=== PATIENT | male | born 1940 | race Caucasian/White ===

== ENCOUNTER → 2024-05-07 | Outpatient (CLI) | payer MEDICARE, BC, SELFPAY ==
[2024-05-12 13:50] LABS: PSA, Free 1.34 ng/mL
[2024-05-13 07:03] LABS: PSA, % Free 22 % (calc) (>25)
== END | disposition home or self-care (01) ==
PROVIDERS: PCP Nurse Practitioner Family; Referring Provider Physician Assistant; Visit Provider Physician Assistant
DX: N40.1 Benign prostatic hyperplasia with lower urinary tract symptoms (principal)
CPT/HCPCS: 36415; 84153; 84154

== ENCOUNTER → 2024-05-07 | Outpatient (BNVA) | payer MEDICARE, BC, SELFPAY | END | disposition home or self-care (01) | PROVIDERS: Visit Provider Physician Assistant | DX: N40.1 Benign prostatic hyperplasia with lower urinary tract symptoms (principal); R97.20 Elevated prostate specific antigen [PSA]; Z96.0 Presence of urogenital implants; E11.9 Type 2 diabetes mellitus without complications; I11.9 Hypertensive heart disease without heart failure; Z80.42 Family history of malignant neoplasm of prostate | CPT/HCPCS: 99212; 99213; Q3014; G0463 ==

== ENCOUNTER → 2024-07-23 | Outpatient (BNVA) | payer MEDICARE, BC, SELFPAY | END | disposition home or self-care (01) | PROVIDERS: Visit Provider Urology | DX: N40.1 Benign prostatic hyperplasia with lower urinary tract symptoms (principal); N13.8 Other obstructive and reflux uropathy; R35.0 Frequency of micturition | CPT/HCPCS: 81003; 99212; G0463 ==

== ENCOUNTER 2024-08-27 20:15 | Emergency (ER) | payer MEDICARE, BC, SELFPAY ==
--- NOTE | 2024-08-27 20:19 | PD.EDSYNC ---
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 Patient recalls going to the restroom, urinating, feeling dizzy, then waking up on the floor. After EMS arrived and got him up, patient complained of severe chest pain. Patient was given O2, Aspirin 162 mg, 0.4 g Nitro paste and Nitro SL with no improvement. Patient is on Plavix for a blood clot 3 years ago, but denies stent placement. He was seen by Dr. Wheeler last week and is scheduled for a procedure on his right leg. Patient is unsure of what the procedure is for as he denies any pain or discoloration to the RLE. Patient denies other known cardiac issues or any other associated symptoms or aggravating factors. No modifying factors, no radiation, no migration. Severe chest reported overall. No other concerns or complaints expressed at this time. Related Data Home Medications ?Medication ?Instructions ?Recorded ?Confirmed cholecalciferol (vitamin D3) 50 2,000 unit PO QDAY #0 caps 02/24/17 07/23/24 mcg (2,000 unit) capsule (Vitamin D3) vit C 150 mg-vit E 30 unit-lutein 1 cap PO QAM 04/27/17 07/23/24 5 gm-ichvallr-cnfav 3 150 mg capsule (Ocuvite) losartan 25 mg tablet 25 mg PO QDAY 02/11/19 07/23/24 atorvastatin 40 mg tablet 40 mg PO QHS 07/23/24 07/23/24 clopidogrel 75 mg tablet 75 mg PO QDAY 07/23/24 07/23/24 finasteride 5 mg tablet 5 mg PO QDAY 07/23/24 07/23/24 sertraline 50 mg tablet (Zoloft) 50 mg PO QDAY 07/23/24 07/23/24 tamsulosin 0.4 mg capsule (Flomax) 0.8 mg PO HS 07/23/24 07/23/24 trazodone 50 mg tablet 50 mg PO QHS PRN 07/23/24 07/23/24 Allergies Allergy/AdvReac Type Severity Reaction Status Date / Time No Known Allergies Allergy Verified 08/27/24 20:41 Review of Systems Review of Systems Systems Reviewed: All systems reviewed, normal except as documented Past Medical History Past Medical History CARDIAC: Positive Cardiac Disorders GENITOURINARY: Positive Genitourinary Disorders and Benign Prostatic Hyperplasia Family History FAMILY HISTORY: Positive Family Cancer Surgical History SURGICAL: Positive Abdominal Surgery ED Exam Narrative Physical exam: GENERAL APPEARANCE: alert and oriented x 4, well-developed, well-nourished, no acute distress VITALS: All vitals were reviewed and the pulse ox is 98% on room air, which is normal according to my interpretation. HEENT: Normocephalic, 3 lacerations to the head 1 cm (x1), < 1 cm (x2) to left parietal area; pupils equal, round, reactive to light; EOMI; mucous membranes pink, moist; oropharynx clear NECK: Supple LUNGS: CTABL; no wheezes, no rales, no rhonchi HEART: Regular rate, regular rhythm; normal S1, S2; no murmurs. CHEST: Nitro paste patch placed. ABDOMEN: non distended; normal BS; soft, mild suprapubic tenderness, no guarding, no rebound; no masses, no organomegaly, no hernia BACK: no CVA tenderness EXTREMITIES: skin tear to the left elbow; no edema, no tenderness NEUROLOGIC: awake; alert and oriented x4; cranial nerves II-XII grossly intact; no focal sensory or motor deficits PSYCHIATRIC: appropriate mood and affect SKIN: warm, dry, normal color; no rashes Course Course Course Narrative: CXR is ordered for determining the etiology of shortness of breath. Quality Measures none Orders Category Date Time Status CT Screening NOW Care 08/27/24 20:21 Active Formal Waiter/Waitress NOW Care 08/27/24 20:20 Active EKG (ED ONLY) *Do not use* NOW Care 08/27/24 20:20 Completed EKG (ED ONLY) *Do not use* NOW Care 08/27/24 20:31 Completed Insert IV NOW Care 08/27/24 20:[address] angio carotid w head w Stat Exams 08/27/24 20:[address] cervical spine wo con Stat Exams 08/27/24 20:[address] head/brain wo con Stat Exams 08/27/24 20:21 Completed EKG (ED Only) Stat Exams 08/27/24 20:20 Ordered EKG (ED Only) Stat Exams 08/27/24 20:30 Ordered XR chest 1V portable Stat Exams 08/27/24 20:20 Completed B-Type Natriuretic Peptide Stat Lab 08/27/24 20:30 Completed CBC Stat Lab 08/27/24 20:30 Completed Comprehensive Metabolic Panel Stat Lab 08/27/24 20:30 Completed Lipase Stat Lab 08/27/24 20:30 Completed Magnesium Stat Lab 08/27/24 20:30 Completed Partial Thromboplastin Time Stat Lab 08/27/24 20:30 Completed Prothrombin Time with INR Stat Lab 08/27/24 20:30 Completed Troponin I Stat Lab 08/27/24 20:30 Completed Troponin I Stat Lab 08/28/24 02:05 Completed Morphine Inj Med 08/27/24 20:33 Discontinued 5 mg IVP X1 ONE Ondansetron Inj [Zofran Inj] Med 08/27/24 20:33 Discontinued 4 mg IVP X1 ONE Vital Signs Vital signs: Vital Signs Temperature 97.6 F 08/27/24 20:27 Pulse Rate 77 08/27/24 20:27 Respiratory Rate 16 08/27/24 20:27 Blood Pressure 148/88 H 08/27/24 20:27 Pulse Oximetry (%) 96 08/27/24 20:27 Oxygen Delivery Method Room Air 08/27/24 20:27 PROCEDURES: EKG Interpretation #2: Date of EK08/27/24 Interpretation: Interpreted by me EKG Impression: PVCs and Bundle branch block Additional EKG comment: EKG manual reading, my interpretation: sinus rhythm, rate: xx bpm, mild to moderate artifact, occasional PVC's, left BBB, no acute ischemic changes. Laceration Laceration 1: Site: scalp Side (If applicable): left Size (cm): 1 Description: linear Depth: simple, single layer Amount of anesthesia used (mL): 0 Pre-repair: wound explored, irrigated extensively, extensive debridement and wound margins revised Skin layer closed with: other ([place] (x6)) Syncope MDM Narrative MDM Narrative:: Scribe Attestation: I, Niru Malone, am scribing for and in the presence of Dr. Duggan. Provider Notation: Although this document has been carefully reviewed, there may still be some phonetic and other typographical errors.? These errors are purely grammatical due to imperfections in the software program and should not be construed in any way to? compromise the substance of the patient's medical care during this visit. Patient data External records reviewed:: [facility] previous records (Reviewed prior ED records from 07/15/23. Patient was seen for Accidental overdose.) and EMS form Clinical information provided by:: patient and EMS Social determinants that could affect healthcare access:: none Patient has the following chronic illnesses:: Benign prostatic hyperplasia How is presenting disease/condition affected by chronic disease/condition?: exacerbated by Evaluation data The following diagnostics were reviewed and interpreted by me:: lab results, radiology exam(s) and EKG tracing(s) (EKG manual reading, my interpretation: rate: xx bpm, IVCD, left axis deviation, left BBB.) Lab and/or radiology exams considered but not ordered:: None Interpretation Summary: RADIOLOGY Chest X-Ray: Patient: NEENA DUMONT Med. Record#: [id number] Birthdate: 1940 Age/Sex: 84 / M Location: [facility] Attending Dr: Ordering Physician: Estrella Duggan MD Date of Service: 08/27/24 Procedure(s): XR chest 1V portable Accession Number(s): [id number] cc: Antonia Mejia [employer]; Randy Murphy MD; Estrella Duggan MD~ Examination: PA chest single view TECHNIQUE: Upright PA chest single view Date and time: August 27, 2024 2037 hours INDICATIONS: Chest pain and shortness of breath today. FINDINGS: Early pneumonia left base. Mild prominence left ventricle Mild vascular congestion Prominent osteopenia IMPRESSION: Early pneumonia left base Dictated By: Randy Murphy MD Signed By: <Electronically signed by Randy Murphy MD in OV> 08/27/24 2104 CTA Carotid with Head: Patient: NEENA DUMONT [facility]. Record#: [id number] Birthdate: 1940 Age/Sex: 84 / M Location: [facility] Attending Dr: Ordering Physician: Estrella Duggan MD Date of Service: 08/27/24 Procedure(s): CT angio carotid w head w Accession Number(s): [id number] cc: Antonia Mejia NP; Randy Murphy MD; Estrella Duggan MD~ Examination: CTA carotids with intravenous contrast CTA brain, head with intravenous contrast. 2-D sagittal, coronal reconstructions. 3-D reconstructions. Exam date and time: August 27, 2024 2141 hours INDICATIONS: Syncopal episodes today history carotid stent CTDI: vol (mGy) , 11.6 DLP: (mGycm) 469 Technique: Multiple CTA axial brain, head carotid images post intravenous contrast injection 75 cc, Isovue-370. 2-D sagittal, coronal reconstructions. 3-D reconstructions, 3-D post processing including vascular maximum intensity projection images. Low dose protocols were performed. One or more of the following dose reduction techniques were used; automated exposure control, adjustment of the mA and/or KV according to patient size, use of iterative reconstruction technique. Findings: Right carotid stent with 70-80% stenosis, sagittal images 90 10-30% stenosis origin left internal carotid artery Codominant vertebral arteries with no critical stenoses No cerebral or basilar arterial conclusions IMPRESSION: Right carotid stent with 70-80% stenosis at the level of the internal carotid artery Dictated By: Randy Murphy MD Signed By: <Electronically signed by Randy Murphy MD in OV> 08/27/242222 Head/Brain CT: Patient: NEENA DUMONT [facility]. Record#: [id number] Birthdate: 1940 Age/Sex: 84 / M Location: [facility] Attending Dr: Ordering Physician: Estrella Duggan MD Date of Service: 08/27/24 Procedure(s): CT head/brain wo con Accession Number(s): [id number] cc: Antonia Mejia NP; Randy Murphy MD; Estrella Duggan MD~ Examination: CT brain head without contrast. 2-D sagittal coronal reconstructions Date and time of exam:August 27, 20242134 hours Comparison June 08, 2014 INDICATIONS: Patient fell today with injury to the head, followed by head pain altered mental status CTDI: vol (mGy):51.6 DLP: (mGycm):1039 Technique: Multiple CT axial sections of the brain have been obtained, 5 mm slice thickness. Contrast has not been administered. 2-D sagittal, coronal reconstructions have been obtained Low dose protocols were performed. One or more of the following dose reduction techniques were used; automated exposure control, adjustment of the mA and/or KV according to patient size, use of iterative reconstruction technique. Findings: No significant ventricular enlargement. Intra-axial or extra-axial hemorrhage density is not seen. No mass effect or midline shift Basal cisterns are not remarkable. Fourth ventricle is midline. Cranial vault intact. Left parietal soft tissue scalp swelling Impression: Negative for acute hemorrhage, mass effect or midline shift Dictated By: Randy Murphy MD Signed By: <Electronically signed by Randy Murphy MD in OV> 08/27/24 2219 C-Spine CT: Patient: NEENA DUMONT. Record#: [id number] Birthdate: 1940 Age/Sex: 84 / M Location: [facility] Attending Dr: Ordering Physician: Estrella Duggan MD Date of Service: 08/27/24 Procedure(s): CT cervical spine wo con Accession Number(s): [id number] cc: Antonia Mejia NP; Randy Murphy MD; Estrella Duggan MD~ Examination: CT cervical spine without contrast 2-D sagittal reconstructions 2-D coronal reconstructions 3-D reconstructions. Exam date and time:August 27, 2024 2135 hours INDICATIONS: Patient fell today with injury to the neck, neck pain CTDI:vol (mGy) 9.47 DLP: (mGycm) 181 Technique: Multiple 2 mm axial sections of the cervical spine have been obtained. The coronal and sagittal reconstructions have been obtained. 3-D reconstructions have been obtained. Low dose protocols were performed. One or more of the following dose reduction techniques were used; automated exposure control, adjustment of the mA and/or KV according to patient size, use of iterative reconstruction technique. Findings: Axial sections demonstrate intact base of the skull. Cystic change in the odontoid Advanced degenerative disc disease C4-C5, C5-C6, C6-C7, C7-T1 Grade 1 anterolisthesis C7 on T1 3 mm C1 exhibit satisfactory relationship to the odontoid. No acute cervical vertebral body fracture seen. Alignment posterior spinous processes satisfactory. Narrowing of right carotid stent approximately 50% Impression: No acute cervical fracture. 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, not seen on the CT neck study June 06, 2017, recommend elective MRI cervical spine follow-up, pre and postcontrast to exclude osseous metastatic disease Narrowing of right carotid stent approximately 50%, recommend follow-up carotid Doppler sonography Dictated By: Randy Murphy MD Signed By: <Electronically signed by Randy Murphy MD in OV> 08/27/24 2217 Medications / Prescriptions Medications or Prescriptions considered but not ordered:: None Medication administrations:: Medication Administration History Discontinued Medications Morphine Sulfate (Morphine Sulf Inj 10 Mg/Ml Vial) 5 mg IVP X1 ONE Stop: 08/27/24 20:34 Last Admin: 08/27/24 20:43 Dose: 5 mg Documented By: CVL Comments: VIAL WAS DISCARD BEFORE SCANNING Ondansetron HCl (Ondansetron Inj 2 Mg/Ml Inj 2 Ml) 4 mg IVP X1 ONE Stop: 08/27/24 20:34 Last Admin: 08/27/24 20:43 Dose: 4 mg Documented By: CVL See above if any Consultations Consultation(s) initiated? (list below): No Diagnosis Syncope Differential Diagnosis: syncope due to orthostatic hypotension, vasovagal syncope, complete atrioventricular block, subarachnoid hemorrhage, pulmonary embolism and dehydration Most likely diagnosis given after review of the tests above:: Syncope, Chest pain, Right carotid stenosis, Laceration of scalp. Admission Indicated Admission indicated?: not indicated Explain why admission is indicated or not indicated:: Patient does not meet admission criteria. Admission Request Was there a request for admission?: No Disposition Plan Disposition Plan: Discharge Discharge Attestation Discharge Attestation: The patient and all family members were given an opportunity to ask questions and understood the discharge instructions. Discharge instructions specifically effects, indications for sooner follow up or return to the emergency department, and the expected course of current diagnosis. Patient condition: Stable Discharge Plan Plan Patient Disposition: HOME (Self Care) Prescriptions/Referrals Prescriptions/Med Rec: No Action tamsulosin [Flomax] 0.4 mg capsule 0.8 mg PO HS vit C-vit W-cvqelk-ofa-om-3 [Ocuvite] [id number] pb-mtnc-gk-mg capsule 1 cap PO QAM clopidogrel 75 mg tablet 75 mg PO QDAY losartan 25 mg tablet 25 mg PO QDAY sertraline [Zoloft] 50 mg tablet 50 mg PO QDAY atorvastatin 40 mg tablet 40 mg PO QHS trazodone 50 mg tablet 50 mg PO QHS PRN finasteride 5 mg tablet 5 mg PO QDAY cholecalciferol (vitamin D3) [Vitamin D3] 2,000 UNIT capsule 2,000 unit PO QDAY Qty: 0 Referrals: Antonia Mejia, [employer] [Primary Care Provider] - In 1 week Problem List Clinical Impression: Syncope, Chest pain, Carotid stenosis, right, Laceration of scalp Patient/Caregiver Discharge Instructions Education Materials: ED Chest Pain, Uncertain Cause, ED Laceration Scalp Sutures or ..., ED Fainting, Uncertain Cause Print Language: Swedish Stand Alone Forms: Kassie Award Info., Patient Portal Info Letter
[2024-08-27 20:20] VITALS: PULSE 74; O2SAT 97; BMI 25.0
--- NOTE | 2024-08-27 20:20 | EKG_ITS ---
[facility] Test Date: 2024-08-27 Pat Name: NEENA DUMONT Department: Room: - Gender: Male [employer] Electrician: : 1940 Requested By: Estrella Baird Order Number: [id number] Reading MD: Estrella Baird Measurements Intervals [place] Rate: 70 P: 30 [place]: 178 QRS: -48 QRSD: 146 T: 75 QT: 425 QTc: 461 Interpretive Statements SINUS RHYTHM LEFT AXIS DEVIATION [QRS AXIS < -30] INTRAVENTRICULAR CONDUCTION DELAY [130+ ms QRS DURATION] Compared to ECG 07/14/2023 13:51:38 Intraventricular conduction delay now present Ventricular premature complex(es) no longer present Left bundle-branch block no longer present /store/S0/[id number]/ecg/[id number].pdf
--- NOTE | 2024-08-27 20:20 | XR_ITS ---
Examination: PA chest single view TECHNIQUE: Upright PA chest single view Date and time: August 27, 20242036 hours INDICATIONS: Chest pain and shortness of breath today. FINDINGS: Early pneumonia left base. Mild prominence left ventricle Mild vascular congestion Prominent osteopenia IMPRESSION: Early pneumonia left base
[2024-08-27 20:27] VITALS: BP 148/88; PULSE 77; RESP 16; TEMP 36.4; O2SAT 96
[2024-08-27 20:30] VITALS: PULSE 72
[2024-08-27 20:32] VITALS: BP 177/98; PULSE 72; RESP 20; O2SAT 98
[2024-08-27] MEDS: ONDANSETRON INJ 2 MG/ML INJ 2 ML 4 MG IVP (20:43)
[2024-08-27] MEDS: MORPHINE SULF INJ 10 MG/ML VIAL 5 MG IVP (20:43)
[2024-08-27 20:50] LABS: Basophils % (Auto) 0 % (0-2.5); Eosinophils # (Auto) 0.1 Thou/mm3 (0.0-0.5); Eosinophils % (Auto) 1 % (0-10); Hematocrit 39.7 % (41.0-53.0); Hemoglobin 14.7 g/dL (13.5-16.0); Immature Granulocytes % (Auto) 1 % (0-0); Immature Granulocytes Auto 0.06 Thou/mm3 (0.00-0.00); Lymphocytes # (Auto) 3.1 Thou/mm3 (1.0-4.8); Lymphocytes % (Auto) 29 % (10-50); Mean Corpuscular Hemoglobin 31.5 pg (25.0-35.0); Mean Corpuscular Volume 85 fL (80-100); Monocytes % (Auto) 9 % (0-12); Neutrophils # (Auto) 6.5 Thou/mm3 (1.8-7.7); Neutrophils % (Auto) 61 % (37-80); Nucleated Red Blood Cell % 0 /100 WBC (0); Platelet Count 218 Thou/mm3 (140-440); RDW Standard Deviation 37.2 fL (35.1-43.9); Red Blood Count 4.66 Miln/mm3 (4.50-5.90); White Blood Count 10.7 Thou/mm3 (3.8-10.6)
[2024-08-27 21:04] LABS: INR 1.1 (0.9-1.3); Partial Thromboplastin Time 25.9 Seconds (22.0-36.0); Prothrombin Time 12.2 Seconds (9.0-12.2)
[2024-08-27 21:11] LABS: B-Type Natriuretic Peptide 58 pg/mL (0-100)
[2024-08-27 21:13] LABS: Alanine Aminotransferase 22 U/L (10-49); Albumin, Serum 4.1 gm/dL (3.4-4.8); Albumin/Globulin Ratio 2.3 (1.2-2.2); Alkaline Phosphatase 67 U/L (46-116); Anion Gap 8 (7-16); Aspartate Amino Transferase 21 U/L (0-34); BUN/Creatinine Ratio 15 Ratio (12-20); Bilirubin,Total 0.8 mg/dL (0.3-1.2); Blood Urea Nitrogen 19 mg/dL (9-23); Calcium 9.6 mg/dL (8.3-10.6); Calcium (Corrected) 9.6 mg/dL (8.5-10.1); Carbon Dioxide 25.1 mMol/L (20.0-31.0); Chloride 99 mMol/L (98-107); Creatinine (Component) 1.3 mg/dL (0.6-1.3); Estimated Creatinine Clearance 41.7 mL/min (>60); Globulin 1.8 gm/dL (2.3-3.5); Glucose 120 mg/dL (74-106); Lipase 74 U/L (12-53); Osmolality,Calculated 267 (275-295); Potassium 3.9 mMol/L (3.4-5.1); Sodium 132 mMol/L (136-145); Total Protein 5.9 gm/dL (5.7-8.2); eGFR 55 See Note
[2024-08-27 21:23] VITALS: BP 143/80; PULSE 74; RESP 18; O2SAT 97
[2024-08-27 23:14] VITALS: BP 135/79; PULSE 79; RESP 19; TEMP 36.6; O2SAT 97
[2024-08-28] VITALS: BP 157/83; PULSE 99; RESP 18; O2SAT 98
[2024-08-28 01:19] VITALS: BP 148/79; PULSE 77; RESP 21; TEMP 36.6; O2SAT 97
--- NOTE | 2024-08-28 01:30 | PC.NURSE ---
food and water provided to pt.
[2024-08-28 02:39] LABS: Troponin I 0.034 ng/mL (0.0-0.045)
--- NOTE | 2024-08-28 02:54 | PC.NURSE ---
FAMILY CONTACT- MALKA JACKMANUIRE [phone]
[2024-08-28 03:56] VITALS: RESP 16
== END 2024-08-28 03:59 | disposition home or self-care (01) ==
PROVIDERS: Emergency Provider Emergency Medicine; PCP Nurse Practitioner Family
DX: S01.01XA Laceration without foreign body of scalp, initial encounter (principal); I65.21 Occlusion and stenosis of right carotid artery; X58.XXXA Exposure to other specified factors, initial encounter; J18.9 Pneumonia, unspecified organism; M89.58 Osteolysis, other site; R55 Syncope and collapse; N40.0 Benign prostatic hyperplasia without lower urinary tract symptoms; I49.3 Ventricular premature depolarization
CPT/HCPCS: 36415; 70450; 70496; 70498; 71045; 72125; 80053; 83690; 83735; 83880; 84484; 85025; 85610; 85730; 93005; 96374; 96375; 99284; A4649; J2270; J2405; Q9967

== ENCOUNTER → 2024-08-30 | Outpatient (CLI) | payer MEDICARE, BC, SELFPAY ==
--- NOTE | 2024-08-30 13:00 | XR_ITS ---
Examination: CT abdomen and pelvis without contrast. Coronal 3-D reconstructions. Sagittal 2-D reconstructions. 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 Low dose protocols were performed. One or more of the following dose reduction techniques were used; automated exposure control, adjustment of the mA and/or KV according to patient size, use of iterative reconstruction technique. Findings: Atelectasis left lower lobe No focal liver or splenic lesion Contracted gallbladder No pancreatic mass Mild nodular thickening left adrenal gland Mild renal parenchymal scar formation Abdominal aortic calcification no aneurysmal dilatation Mildly fluid distended small bowel loops in the left abdomen Normal appendix Colonic diverticulosis, no diverticulitis Small fat-containing inguinal hernia Transverse prostate dimension 4.3 cm Prominent osteopenia Enlarging sclerotic focus L3 vertebral body compared with August 09, 2017, now measuring 13 mm 6 mm osteolytic lesions right first sacral wing and posterior right iliac bone axial image 183, more caudad 6 mm osteolytic lesion right iliac bone image 184 20 mm osteolytic lesion lateral left acetabular roof 10 mm osteolytic lesion left femoral neck 16mm osteolytic lesion right femoral head 16mm osteolytic lesion left femoral neck IMPRESSION: Findings consistent with osseous metastatic disease as above Consider whole body bone scan follow-up
== END | disposition home or self-care (01) ==
LOC: CCTX 09-05 07:34
PROVIDERS: Referring Provider Nurse Practitioner Family; Visit Provider Nurse Practitioner Family
DX: R93.7 Abnormal findings on diagnostic imaging of other parts of musculoskeletal system (principal); R74.8 Abnormal levels of other serum enzymes
CPT/HCPCS: 74176

== ENCOUNTER → 2024-09-03 | Outpatient (CLI) | payer MEDICARE, BC, SELFPAY ==
[2024-09-03 11:01] LABS: Amylase 177 U/L (30-118); Lipase 85 U/L (12-53)
== END | disposition home or self-care (01) ==
LOC: COPL 10:01
PROVIDERS: PCP Nurse Practitioner Family; Referring Provider Nurse Practitioner Family; Visit Provider Nurse Practitioner Family
DX: J15.9 Unspecified bacterial pneumonia (principal)
CPT/HCPCS: 36415; 82150; 83690

== ENCOUNTER 2024-09-18 14:37 | Outpatient (RCR) | payer MEDICARE, BC, SELFPAY ==
--- NOTE | 2024-09-18 17:12 | CTCCONSULT_ITS ---
[facility] [address] [place], [place] [address] Consultation Note Date: 09/18/2024 MR#: [id number] Name: NEENA DUMONT : 1940 Dx: C79.51 Secondary malignant neoplasm of bone Attending physician. Antonia Mejia NP Reason for consultation. Patient with suspicious lesions suggestive of malignancy involving bone referred to the cancer treatment center. 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 There was narrowing of the right carotid stent approximately 50%. CT angio carotid revealed right carotid stent with 70 to 80% stenosis at the level of internal carotid artery. Abdominal pelvis CT 08/30/2024 revealed multiple osteolytic lesions lateral left acetabular roof left femoral neck right femoral head left femoral neck sclerotic focus L3. The transverse prostate dimension was 4.3 cm. There were no focal liver or splenic lesions or pancreat ic mass. Patient has been followed by urologist for prostatism and borderline elevated PSA. Patient's most recent PSA was 6.0 total with 22% free PSA on 05/07/2024. Patient denies any significant bone pain. Patient's laceration of left scalp was treated at the ER. 08/27/2024 labs that ER WBC 10.7 hemoglobin 14.7 platelets 2 18,000. CMP showing normal calcium LFTs EGFR 55 glucose 120. Patient now referred to the cancer center. Past Medical History: High blood pressure prostatism seizures Family history. Mother had lung cancer father had prostate cancer with bone mets Meds. Vitamin C Ocuvite losartan atorvastatin Plavix finasteride sertraline tamsulosin trazodone Allergies none known Social History: Retired professor from [employer]; denies smoking drinking Review of Systems: Physical Exam: General: Adequate nourished appearing gentleman in no acute distress HEENT: Atraumatic no cephalic extraocular intact no lesions no cervical or supra clavicular adenopathy CV: Chest clear to auscultation heart regular rate and rhythm ABD: Soft no organomegaly tenderness EXT: No bony tenderness no sinus clubbing or edema Assessment:#1. Bony lesions suggestive of bone mets. #2. Order MRI of the C-spine with and without contrast considering the sensitive nature of the bony lesion at odontoid C2 area near the spinal cord and brainstem #3. Bone scan #4. PSA CEA routine labs #5. Follow-up 1 month. Thank you very much for allowing me to evaluate this patient. Electronically signed by: Jewel Cuellar MD, DABR 09/18/2024 5:10 PM
== END 2024-10-03 23:59 | disposition home or self-care (01) ==
LOC: SCTC 14:37
PROVIDERS: PCP Nurse Practitioner Family; Referring Provider Nurse Practitioner Family; Visit Provider Radiology Therapeutic Radiology
DX: M89.9 Disorder of bone, unspecified (principal)
CPT/HCPCS: 99213; G0463

== ENCOUNTER → 2024-10-30 | Outpatient (CLI) | payer MEDICARE, BC, SELFPAY ==
[2024-10-30 11:40] LABS: Basophils # (Auto) 0.0 Thou/mm3 (0.0-0.2); Basophils % (Auto) 1 % (0-2.5); Eosinophils # (Auto) 0.0 Thou/mm3 (0.0-0.5); Eosinophils % (Auto) 0 % (0-10); Hematocrit 42.9 % (41.0-53.0); Hemoglobin 14.7 g/dL (13.5-16.0); Immature Granulocytes Auto 0.05 Thou/mm3 (0.00-0.00); Lymphocytes # (Auto) 1.4 Thou/mm3 (1.0-4.8); Lymphocytes % (Auto) 16 % (10-50); Mean Corpuscular HGB Conc 34.3 g/dl (31.0-37.0); Mean Corpuscular Hemoglobin 30.9 pg (25.0-35.0); Mean Corpuscular Volume 90 fL (80-100); Monocytes # (Auto) 0.7 Thou/mm3 (0.0-0.8); Monocytes % (Auto) 8 % (0-12); Neutrophils # (Auto) 6.4 Thou/mm3 (1.8-7.7); Neutrophils % (Auto) 74 % (37-80); Nucleated Red Blood Cell # 0.00 Thou/mm3 (0.00-0.00); Nucleated Red Blood Cell % 0 /100 WBC (0); Platelet Count 246 Thou/mm3 (140-440); RDW Standard Deviation 39.4 fL (35.1-43.9); Red Blood Count 4.75 Miln/mm3 (4.50-5.90); White Blood Count 8.6 Thou/mm3 (3.8-10.6)
[2024-10-30 11:53] LABS: Prostate Specific Antigen 3.91 ng/mL (0-4.00)
[2024-10-30 11:58] LABS: Carcinoembryonic Antigen 3.7 ng/mL (0.0-5.0)
[2024-10-30 12:05] LABS: Alanine Aminotransferase 15 U/L (10-49); Albumin, Serum 4.0 gm/dL (3.4-4.8); Albumin/Globulin Ratio 2.0 (1.2-2.2); Alkaline Phosphatase 80 U/L (46-116); Anion Gap 7 (7-16); Aspartate Amino Transferase 15 U/L (0-34); BUN/Creatinine Ratio 18 Ratio (12-20); Bilirubin,Total 0.5 mg/dL (0.3-1.2); Blood Urea Nitrogen 25 mg/dL (9-23); Calcium 9.8 mg/dL (8.3-10.6); Calcium (Corrected) 9.8 mg/dL (8.5-10.1); Carbon Dioxide 28.5 mMol/L (20.0-31.0); Chloride 103 mMol/L (98-107); Creatinine (Component) 1.4 mg/dL (0.6-1.3); Globulin 2.0 gm/dL (2.3-3.5); Glucose 94 mg/dL (74-106); Osmolality,Calculated 280 (275-295); Potassium 4.7 mMol/L (3.4-5.1); Sodium 138 mMol/L (136-145); Total Protein 6.0 gm/dL (5.7-8.2); eGFR 50 See Note
== END | disposition home or self-care (01) ==
LOC: SCTO 10:26
PROVIDERS: PCP Family Medicine; Referring Provider Radiology Therapeutic Radiology; Visit Provider Radiology Therapeutic Radiology
DX: C79.51 Secondary malignant neoplasm of bone (principal)
CPT/HCPCS: 36415; 80053; 82378; 84153; 85025

== ENCOUNTER 2024-11-01 10:30 | Day surgery (SDC) | payer MEDICARE, BC, SELFPAY ==
[2024-11-01] VITALS (15 sets, daily range): BP systolic 135–183; BP diastolic 78–107; PULSE 75–95; RESP 12–25; TEMP 36.4–36.6; O2SAT 92–98; BMI 24.0
[2024-11-01] MEDS: SODIUM CHLORIDE 0.9% 500 ML 500 ML 20 ML IV (11:30)
[2024-11-01] MEDS: BENZOCAINE 20% (Hurricaine) SPRAY 1 DOSE TOP (11:31)
[2024-11-01] MEDS: MIDAZOLAM INJ 1 MG/ML VIAL 2 ML (ASD USE ONLY) 2 MG IVP (11:46)
[2024-11-01] MEDS: fentaNYL CIT INJ 50 mCg/ML AMP 2ML (ASD USE ONLY) IVP (11:46)
== END 2024-11-01 13:03 | disposition home or self-care (01) ==
PROVIDERS: PCP Nurse Practitioner Family; Referring Provider Specialist; Visit Provider Specialist
PROC: 0DBE8ZX Excision of Large Intestine, Via Natural or Artificial Opening Endoscopic, Diagnostic (ICD-10-PCS; CPT 45380; principal; 2024-11-01 11:00)
PROC: (CPT 43239; 2024-11-01 11:00)
DX: D12.3 Benign neoplasm of transverse colon (principal); K64.9 Unspecified hemorrhoids; K57.31 Diverticulosis of large intestine without perforation or abscess with bleeding; N40.0 Benign prostatic hyperplasia without lower urinary tract symptoms; Z79.899 Other long term (current) drug therapy; C79.51 Secondary malignant neoplasm of bone; E78.5 Hyperlipidemia, unspecified; I10 Essential (primary) hypertension
CPT/HCPCS: 45380; A4217; A4649; J1200; J2250; J3010; J7999; A9270

== ENCOUNTER → 2024-11-07 | Outpatient (CLI) | payer MEDICARE, BC, SELFPAY ==
--- NOTE | 2024-11-07 16:00 | XR_ITS ---
Examination: MRI cervical spine, without intravenous contrast. MRI cervical spine. , with intravenous contrast. Exam date and time: November 07, 2024, 1647 hrs. Indications: CT cervical spine August 27, 2024 cystic change in the odontoid Technique: Multiple axial, sagittal and coronal images of the cervical spine have been obtained with the Siemens high-resolution 1.5 [place] MRI scanner. Images obtained included T2 weighted fat suppressed sagittal sections, TR 3500, TE 46, T2 weighted coronal fat suppressed images, TR 3050, TE 84, T2-weighted transverse fat suppressed images, TR 30-60, TE 63, proton density transverse images, TR 4720, TE 46, and T1 weighted coronal images, TR 560, TE 13. Axial, sagittal and coronal images are obtained post intravenous injection 3 cc gadolinium. Findings: Soft tissue mass posterior to the odontoid. Measuring 9 x 18 x 10 mm, adjacent to the cystic lesion described on the CT cervical spine study August 27, 2024. Millimeter osteolytic lesion does appear to demonstrate enhancement on the postcontrast images Erosion of the odontoid appears more prominent compared to the CT cervical spine August 27, 2024 The remaining osseous structures are intact No abnormal enhancement the cervical cord Moderate disc narrowing C4-C5, C5-C6, C6-C7, C7-T1 Grade 1 anterolisthesis C7 on T1 Impression: Osteolytic lesion involving the odontoid again noted with adjacent posterior soft tissue mass, 9 x 18 x 10 mm Differential would include metastatic soft tissue mass eroding the odontoid Recommend repeat CT scan cervical spine to assess progression of cortical erosion involving the odontoid compared to the August 27, 2024 exam
== END | disposition home or self-care (01) ==
PROVIDERS: PCP Nurse Practitioner Family; Referring Provider Radiology Therapeutic Radiology; Visit Provider Radiology Therapeutic Radiology
DX: M89.58 Osteolysis, other site (principal); M85.88 Other specified disorders of bone density and structure, other site; C79.51 Secondary malignant neoplasm of bone
CPT/HCPCS: 72156; A9577

== ENCOUNTER → 2024-11-27 | Outpatient (CLI) | payer MEDICARE, BC, SELFPAY ==
--- NOTE | 2024-11-27 14:30 | XR_ITS ---
Examination: Bone scan whole body, radioisotope Date and time of exam: November 27, 2024 2137 hours, comparison February 15, 2018 INDICATIONS: Diagnosis secondary malignant neoplasm bone Technique: Study has been performed with intravenous administration of 32 mci 99M technetium MDP. Anterior, posterior whole body images are obtained. Images have been obtained including the lower extremities. Findings: Increased ossific examination multiple left mid ribs in the midaxillary line, at least the eighth 1710 6 ribs Increased uptake L5 L4 L3 and sagittal increased uptake in the mid dorsal spine Increased uptake left foot tarsal bones and asymmetric uptake about the knees IMPRESSION: Additional abnormal areas of isotopic examination of the current study worrisome for osseous metastatic disease Recommend plain films left ribs, lumbar and thoracic spine AP pelvis follow-up
== END | disposition home or self-care (01) ==
LOC: SNUC 07:52
PROVIDERS: PCP Nurse Practitioner Family; Referring Provider Radiology Therapeutic Radiology; Visit Provider Radiology Therapeutic Radiology
DX: R93.7 Abnormal findings on diagnostic imaging of other parts of musculoskeletal system (principal); C79.51 Secondary malignant neoplasm of bone
CPT/HCPCS: 78306; A9503

== ENCOUNTER 2024-12-03 14:25 | Outpatient (RCR) | payer MEDICARE, BC, SELFPAY ==
--- NOTE | 2024-12-03 15:30 | CTCFLWUP_ITS ---
[facility] [address] [place], [place] [address] FOLLOW-UP NOTE Date: 12/03/2024 MR#: [id number] Name: NEENA DUMONT : Dx: C79.51 Secondary malignant neoplasm of bone Identification. Patient was suspected bone malignancy at MRI of the C-spine 11/07/2024 showing osteolytic lesion involving the odontoid area 9 x 18 x 10 mm. Also bone scan showing additional abnormal areas in the area of the left ribs lumbar thoracic spine and pelvis. PSA and CEA within normal limits. Patient's pain is stable at this point with no increased symptoms. Pain in left rib cage has actually improved. Will check myeloma panel of serum protein electrophoresis beta-2 microglobulin quantitative immunoglobulin along with routine blood tests. Along with repeat CT spine with contrast. See patient back in 6 weeks. Electronically signed by: Jewel Cuellar M.D. 12/03/2024 3:28 PM
== END 2024-12-03 23:59 | disposition home or self-care (01) ==
LOC: SCTC 14:25
PROVIDERS: PCP Nurse Practitioner Family; Referring Provider Radiology Therapeutic Radiology; Visit Provider Radiology Therapeutic Radiology
DX: C79.51 Secondary malignant neoplasm of bone (principal); R07.81 Pleurodynia; M48.8X6 Other specified spondylopathies, lumbar region; R93.7 Abnormal findings on diagnostic imaging of other parts of musculoskeletal system
CPT/HCPCS: 72072; 72110; 72170; 99212; G0463

== ENCOUNTER → 2024-12-03 | Outpatient (CLI) | payer MEDICARE, BC, SELFPAY ==
--- NOTE | 2024-12-03 16:02 | XR_ITS ---
Examination: Thoracic spine 3 views Technique: AP lateral coned lateral upper dorsal spine 3 views Date and time: December 03, 2024, 6004 hours Indications: Diagnosis secondary malignant neoplasm bone, nuclear medicine bone scan 11/27/2024 increased isotope accumulation multiple left ribs, mid dorsal spine, lumbar spine Findings: Prominent osteopenia Thoracic dextroscoliosis 30 degrees No clem osteolytic or osteoblastic lesions Mild to moderate diffuse thoracic disc narrowing Advanced degenerative disc disease C4-C5, C5-C6, C6-C7 Impression: No pathologic fractures No definite osteolytic or osteoblastic lesions noted
--- NOTE | 2024-12-03 16:02 | XR_ITS ---
Examination: Lumbar spine, 5 views Technique: Lumbar spine AP, lateral, coned lateral lower lumbar spine, bilateral obliques 5 views Exam date and time: November, 1605 hrs. Indications: Diagnosis malignant neoplasm bone, nectar medicine bone scan 11/27/2024 increased isotope accumulation L5, L4, L3, CT abdomen pelvis August 30, 2024 osteolytic lesions right first sacral wing right iliac bone lateral left acetabulum left femoral neck, abnormal sclerosis L3 vertebral body Findings: Grade 1 anterolisthesis L4 on L5 No pathologic fracture 15 mm osteoblastic focus involving the L3 vertebral body Prominent lumbar levoscoliosis Advanced narrowing right hip joint moderate to advanced narrowing left hip joint Impression: 15 mm osteoblastic focus involving the L3 vertebral body No pathologic fracture
--- NOTE | 2024-12-03 16:02 | XR_ITS ---
Examination: AP pelvis 2 views Technique one AP pelvis hips in neutral position, AP pelvis hips abduction position Date and time: December 03, 2024, 1628 hrs. Indications: Diagnosis malignant neoplasm bone, nuclear medicine bone scan 11/27/2024 increased uptake in osseous structures, CT pelvis August 30, 2024 osteolytic lesions in the right first sacral wing, right iliac bone, bilateral hips Findings: Severe osteopenia Subtle radiolucencies in the iliac bones in the acetabular regions bilaterally as well as right femoral head and neck regions Impression: Suspicious for osteolytic metastatic disease, consider MRI pelvis pre and post contrast follow-up
== END | disposition home or self-care (01) ==
PROVIDERS: PCP Nurse Practitioner Family; Referring Provider Radiology Therapeutic Radiology; Visit Provider Radiology Therapeutic Radiology
DX: M54.50 Low back pain, unspecified (principal); M48.8X6 Other specified spondylopathies, lumbar region; R93.7 Abnormal findings on diagnostic imaging of other parts of musculoskeletal system; C79.51 Secondary malignant neoplasm of bone
CPT/HCPCS: 72072; 72110; 72170

== ENCOUNTER → 2025-01-03 | Outpatient (CLI) | payer MEDICARE, BC, SELFPAY ==
[2025-01-03 13:41] LABS: Basophils # (Auto) 0.1 Thou/mm3 (0.0-0.2); Basophils % (Auto) 1 % (0-2.5); Eosinophils # (Auto) 0.0 Thou/mm3 (0.0-0.5); Eosinophils % (Auto) 0 % (0-10); Hematocrit 42.7 % (41.0-53.0); Hemoglobin 14.8 g/dL (13.5-16.0); Immature Granulocytes Auto 0.11 Thou/mm3 (0.00-0.00); Lymphocytes # (Auto) 1.5 Thou/mm3 (1.0-4.8); Lymphocytes % (Auto) 15 % (10-50); Mean Corpuscular HGB Conc 34.7 g/dl (31.0-37.0); Mean Corpuscular Hemoglobin 31.6 pg (25.0-35.0); Mean Corpuscular Volume 91 fL (80-100); Monocytes # (Auto) 0.9 Thou/mm3 (0.0-0.8); Monocytes % (Auto) 10 % (0-12); Neutrophils # (Auto) 7.1 Thou/mm3 (1.8-7.7); Neutrophils % (Auto) 73 % (37-80); Nucleated Red Blood Cell # 0.00 Thou/mm3 (0.00-0.00); Nucleated Red Blood Cell % 0 /100 WBC (0); Platelet Count 282 Thou/mm3 (140-440); RDW Standard Deviation 40.9 fL (35.1-43.9); Red Blood Count 4.68 Miln/mm3 (4.50-5.90); White Blood Count 9.7 Thou/mm3 (3.8-10.6)
[2025-01-03 13:49] LABS: Alanine Aminotransferase 18 U/L (10-49); Albumin, Serum 4.4 gm/dL (3.4-4.8); Albumin/Globulin Ratio 2.3 (1.2-2.2); Alkaline Phosphatase 97 U/L (46-116); Anion Gap 8 (7-16); Aspartate Amino Transferase 18 U/L (0-34); BUN/Creatinine Ratio 15 Ratio (12-20); Bilirubin,Total 0.5 mg/dL (0.3-1.2); Blood Urea Nitrogen 19 mg/dL (9-23); Calcium 9.5 mg/dL (8.3-10.6); Calcium (Corrected) 9.5 mg/dL (8.5-10.1); Carbon Dioxide 28.0 mMol/L (20.0-31.0); Chloride 100 mMol/L (98-107); Creatinine (Component) 1.3 mg/dL (0.6-1.3); Globulin 1.9 gm/dL (2.3-3.5); Glucose 113 mg/dL (74-106); Osmolality,Calculated 275 (275-295); Potassium 4.5 mMol/L (3.4-5.1); Sodium 136 mMol/L (136-145); Total Protein 6.3 gm/dL (5.7-8.2); eGFR 55 See Note
[2025-01-11 23:36] LABS: Albumin 3.9 g/dL (3.8-4.8); Alpha-1-Globulin 0.3 g/dL (0.2-0.3); Alpha-2-Globulin 0.6 g/dL (0.5-0.9); Beta-1-Globulin 0.4 g/dL (0.4-0.6); Beta-2-globulin 0.3 g/dL (0.2-0.5); Gamma Globulin 0.8 g/dL (0.8-1.7); Immunoglobulin A 242 mg/dL (70-320); Immunoglobulin G 929 mg/dL (600-1540)
[2025-01-13 06:35] LABS: Beta 2 Microglobulin 2.94 mg/L (< OR = 2.51); Immunoglobulin M 50 mg/dL (50-300); Protein, total, serum 6.3 g/dL (6.1-8.1)
== END | disposition home or self-care (01) ==
LOC: SCTO 12:49
PROVIDERS: PCP Nurse Practitioner Family; Referring Provider Radiology Therapeutic Radiology; Visit Provider Radiology Therapeutic Radiology
DX: C79.51 Secondary malignant neoplasm of bone (principal)
CPT/HCPCS: 36415; 80053; 82232; 82784; 84155; 84165; 85025; 86334

== ENCOUNTER → 2025-01-10 | Outpatient (CLI) | payer MEDICARE, BC, SELFPAY ==
--- NOTE | 2025-01-10 16:00 | XR_ITS ---
Examination: CT cervical spine with intravenous contrast 2-D sagittal reconstructions 2-D coronal reconstructions 3-D reconstructions. Exam date and time: January 10, 2025, 1510 hours INDICATIONS: Diagnosis secondary malignant neoplasm of bone CTDI:vol (mGy) 14.7 DLP: (mGycm) 344 Technique: Multiple 2 mm axial sections of the cervical spine have been obtained. The coronal and sagittal reconstructions have been obtained. 3-D reconstructions have been obtained. Low dose protocols were performed. One or more of the following dose reduction techniques were used; automated exposure control, adjustment of the mA and/or KV according to patient size, use of iterative reconstruction technique. Findings: Axial sections demonstrate intact base of the skull. C1 exhibit satisfactory relationship to the odontoid. No acute cervical vertebral body fracture seen. Alignment posterior spinous processes satisfactory. Severe osteopenia 10 mm osteolytic lesion in the odontoid but no pathologic fracture Subcentimeter radiolucencies throughout all the visualized cervical vertebral bodies Advanced disc narrowing C4-C5, C5-C6, C6-C7 C7-T1 Grade 1 anterolisthesis C7 on T1 Right carotid stent Impression: No acute cervical fracture. Osteolytic disease as above No pathologic fracture
== END | disposition home or self-care (01) ==
LOC: SCAT 14:40
PROVIDERS: PCP Radiology Therapeutic Radiology; Referring Provider Radiology Therapeutic Radiology; Visit Provider Radiology Therapeutic Radiology
DX: M85.89 Other specified disorders of bone density and structure, multiple sites (principal); M89.58 Osteolysis, other site; C79.51 Secondary malignant neoplasm of bone
CPT/HCPCS: 72126; A4649; Q9967

== ENCOUNTER → 2025-01-17 | Outpatient (CLI) | payer MEDICARE, BC, SELFPAY ==
[2025-01-23 22:06] LABS: PSA, Free 0.59 ng/mL; PSA, Total 3.7 ng/mL (< OR = 4.0)
[2025-01-24 06:43] LABS: PSA, % Free 16 % (calc) (>25)
== END | disposition home or self-care (01) ==
LOC: COPL 12:44
PROVIDERS: PCP Family Medicine; Referring Provider Urology; Visit Provider Urology
DX: N40.1 Benign prostatic hyperplasia with lower urinary tract symptoms (principal)
CPT/HCPCS: 36415; 84153; 84154

== ENCOUNTER → 2025-01-20 | Outpatient (BNVA) | payer MEDICARE, BC, SELFPAY | END | disposition home or self-care (01) | PROVIDERS: Visit Provider Urology | DX: N40.1 Benign prostatic hyperplasia with lower urinary tract symptoms (principal); N13.8 Other obstructive and reflux uropathy; Z80.42 Family history of malignant neoplasm of prostate; I10 Essential (primary) hypertension | CPT/HCPCS: 81003; 99213; G0463 ==

== ENCOUNTER 2025-02-04 09:02 | Outpatient (RCR) | payer MEDICARE, BC, SELFPAY ==
--- NOTE | 2025-02-04 10:33 | CTCFLWUP_ITS ---
Patient: NEENA DUMONT : 1940 Page 2 of 4 FOLLOW UP NOTE DATE OF SERVICE: 02/04/2025 NAME: NEENA DUMONT ACCOUNT: [id number] : 1940 AGE: 84 INTERVAL HISTORY: Patient is here to establish care. Patient is referred for lytic lesion. However he ONCOLOGY HISTORY: DIAGNOSIS: Secondary malignant neoplasm of bone [ICD10] C79.51 DATE OF DIAGNOSIS: No diagnosis yet STAGE/TNM: Lytic lesion likely metastatic TREATMENT HISTORY: Care?Plan Start?Date Cycle Day Intent HISTORY OF PRESENT ILLNESS: Send is 84-year-old male who was referred to us for lytic lesions. Patient did not have any biopsy. Patient had a mildly elevated PSA and was referred to Dr. Robles and following with him. Rectal examination did not reveal any concerning findings. 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 Tobacco?Use:?Denies ETOH?Use:?Denies Drug?Note:?Denies Social History Note:?Lives alone - has dementia-in SNF MEDICATIONS: 1. clopidogrel - 75 mg 1 tab Daily 2. finasteride - 5 mg 1 tab Daily 3. losartan - 25 mg 1 tab Twice a Day 4. omeprazole - 40 mg 1 Capsule Daily 5. sertraline - 50 mg 1 tab Daily 6. tamsulosin - 0.4 mg 2 Capsule Daily Medications Last Reconciled by Alecia Portillo RN on 02/04/2025 ALLERGIES: No Known Drug Allergies REVIEW OF SYSTEMS: A complete 14-point review of systems was performed and is negative except as noted in interval history. PHYSICAL EXAMINATION: VITAL SIGNS: Temperature?99, B/P?142/74, Oxygen?Saturation?95% Weight?168?lbs (Change?since?01/16/25:?1?lbs) PAIN: 2 - Mild pain ECOG Performance Status: 1 - Symptomatic; ambulatory; restricted in strenuous activity GENERAL APPEARANCE: Appears well, in no apparent distress, appropriately interactive. HEENT: Normocephalic, no temporal wasting, normal conjunctiva, no scleral icterus, normal hearing, lips without lesions, neck normal range of motion. CARDIOVASCULAR: Not assessed. PULMONARY: Normal respiratory effort, no respiratory distress or use of accessory muscles, speaking in full sentences, no tachypnea. EXTREMITIES: No pedal edema or cyanosis. SKIN: Normal skin appearance. NEUROLOGIC: Alert and oriented x4. PSHYCHIATRIC: Appropriate affect, mood normal, behavior normal, intact thought and speech. LABORATORY DATA: I have personally reviewed and interpreted each of the patient?s relevant lab tests, abnormal findings are below: Date 10/30/24 01/03/25 ??WHITE?BLOOD?COUNT?(Thou/mm3) 8.6 9.7 ??RED?BLOOD?COUNT?(Miln/mm3) 4.75 4.68 ??HEMOGLOBIN?(gm/dl) 14.7 14.8 ??HEMATOCRIT?(%) 42.9 42.7 ??PLATELET?COUNT?(Thou/mm3) 246 282 ??NEUTROPHILS?%,?AUTO?(%) 74 73 ??LYMPH?%,?AUTO?(%) 16 15 ??NEUTROPHILS,?AUTO?(Thou/mm3) 6.4 7.1 ??GLUCOSE,RANDOM?(mg/dL) ? 113?H ??BLOOD?UREA?NITROGEN?(mg/dL) ? 19 ??CREATININE?(mg/dL) ? 1.30 ??SODIUM?(mmol/L) ? 136 ??POTASSIUM?(mmol/L) ? 4.5 ??CHLORIDE?(mmol/L) ? 100 ??CrCl?(CandG)?(ml/min) ? 46.13 ??AST/SGOT?(Unit/L) ? 18 ??ALT/SGPT?(Unit/L) ? 18 ??ALKALINE?PHOSPHATASE?(Unit/L) ? 97 ??BILIRUBIN,?TOTAL?(mg/dL) ? 0.5 ??PROTEIN?TOTAL?(gm/dl) ? 6.3 ??ALBUMIN,?SERUM?(gm/dl) ? 4.4 ??GLOBULIN?(gm/dl) ? 1.9?L ??ALBUMIN/GLOBULIN?RATIO ? 2.3?H ??CALCIUM,?SERUM?(mg/dL) ? 9.5 ??CALCIUM?SERUM?(CORRECTED)?(mg/dL) ? 9.5 ??CEA?(O*)?(ng/ml) 3.7 ? ASSESSMENT/PLAN: Osteolytic lesions rule out multiple myeloma and metastatic disease Reviewed bone scan and CT scan and concerning for osteolytic lesions in multiple areas in the bones Will get PET CT scan to see hypermetabolism Ordered bone marrow biopsy to see involvement of bone marrow and to evaluate for multiple myeloma Labs 24-hour urine electrophoresis 12 wait for myeloma RTC with labs imaging and bone marrow results ORDERS: Order # Description [id number] Serum Protein Electrophoresis + Serum Immunofixation Electrophoresis + Beta-2 Microglobulin + Quant Immunoglobulins + Free kappa and lambda light chains plus ratio, quantitative + Urine Protien Electrophoresis + Urine Immunification Electrophoresis [id number] Initial PET/CT of Skull to Mid-Thigh [id number] CEA + CA 15-3 + CA 19-9 RETURN TO CLINIC: I reviewed the diagnosis, prognosis, and recommended treatment/procedure options with the patient (and/or their legal industrial sales representative), including the potential benefits, risks, side effects and alternative therapies. We also discussed the option of no treatment and the possibility of clinical trial participation, if applicable. All questions were addressed, and they demonstrated understanding. They provided informed consent to proceed with the proposed plan of care. BILLING AND COMPLIANCE: I reviewed external records from providers outside my specialty as summarized above. I spent a total of 50 minutes on this patient?s care on the day of their visit excluding time spent related to any billed procedures. This time includes time spent with the patient as well as time spent documenting in the medical record, reviewing patients records and tests, obtaining history, placing orders, communicating with other healthcare professionals, counseling the patient, family or caregiver, and/or care coordination for the diagnoses above. Electronically Signed by: Rod Pradhan MD T: 10:30 AM CC: PCP: Referring: Antonia Mejia This document was completed utilizing speech recognition software. Grammatical errors, random word insertions, pronoun errors, and incomplete sentences are an occasional consequence of this system due to software limitations, ambient noise, and hardware issues. Any formal questions or concerns about the content, text or information contained within the body of this dictation should be directly addressed to the provider for clarification.
== END 2025-03-05 23:59 | disposition home or self-care (01) ==
LOC: SCTC 09:02
PROVIDERS: PCP Nurse Practitioner Family; Referring Provider Nurse Practitioner Family; Visit Provider Internal Medicine Hematology & Oncology
DX: M89.59 Osteolysis, multiple sites (principal)
CPT/HCPCS: 99213; G0463

== ENCOUNTER → 2025-02-13 | Outpatient (CLI) | payer MEDICARE, BC, SELFPAY ==
[2025-02-13 14:53] LABS: CA 15-3 16.3 U/mL (<32.4); Carcinoembryonic Antigen 3.4 ng/mL (0.0-5.0)
[2025-02-20 07:06] LABS: Albumin 3.8 g/dL (3.8-4.8); Alpha-1-Globulin 0.3 g/dL (0.2-0.3); Alpha-2-Globulin 0.5 g/dL (0.5-0.9); Beta-1-Globulin 0.4 g/dL (0.4-0.6); Beta-2-globulin 0.3 g/dL (0.2-0.5); Gamma Globulin 0.8 g/dL (0.8-1.7); Immunoglobulin A 250 mg/dL (70-320); Immunoglobulin G 909 mg/dL (600-1540); Kappa Light Chain, Free 25.0 mg/L (3.3-19.4); Lambda Light Chain, Free 16.0 mg/L (5.7-26.3)
[2025-02-21 07:43] LABS: CA 19-9 Antigen* 24 U/mL (<34); Immunoglobulin M 51 mg/dL (50-300); Kappa/Lambda, Free Ratio 1.56 (0.26-1.65); Protein, total, serum 6.1 g/dL (6.1-8.1)
== END | disposition home or self-care (01) ==
LOC: SCTO 11:26
PROVIDERS: PCP Family Medicine; Referring Provider Internal Medicine Hematology & Oncology; Visit Provider Internal Medicine Hematology & Oncology
DX: C79.51 Secondary malignant neoplasm of bone (principal)
CPT/HCPCS: 36415; 82378; 82784; 83521; 84155; 84165; 86300; 86301; 86334; 86335

== ENCOUNTER → 2025-02-18 | Outpatient (CLI) | payer MEDICARE, BC, SELFPAY ==
--- NOTE | 2025-02-18 08:45 | XR_ITS ---
EXAMINATION: PET/CT FUSION SKULL TO THIGH EXAM DATE AND TIME: February 18, 2025, 0963 hours, comparison CT cervical spine December 10, 2024, CT abdomen August 30, 2024, MRI cervical spine 11/07/2024, nuclear medicine bone scan 11/27/2024 INDICATIONS: Diagnosis secondary malignant neoplasm of bone, 10 mm osteolytic lesion in the odontoid and subcentimeter radiolucencies throughout the visualized cervical vertebral bodies on CT cervical spine January 10, 2025, MR cervical spine 11/07/2024 soft tissue mass posterior to the odontoid 9 x 18 x 10 mm adjacent to the cystic lesion, multiple osteolytic lesions, L3, right first sacral wing, posterior right iliac bone, right iliac bone and left acetabular roof left femoral neck right femoral head left femoral neck on CT abdomen pelvis 05/02/2024 CTDI:vol (mGy) 5.93 DLP: (mGycm) 541 PROCEDURE: 15.7 mCi FDG was administered intravenously To allow for distribution and uptake of radiotracer, the patient was allowed to rest quietly in a shielded room. Imaging was performed on an integrated 16-slice PET/CT scanner, with scanning from the skull base to the mid thigh. Serum blood glucose at the time of the injection was measured 111 mg/dL. CT scanning was performed without oral or intravenous contrast material. FINDINGS: Head and Neck: There is no rianna hypermetabolism in the neck. The visualized portions of the brain are normal in appearance on CT. Chest: There is no rianna hypermetabolism in the chest. There are no pulmonary nodules. Abdomen and Pelvis: There is no rianna hypermetabolism in retroperitoneal or pelvic chains. The spleen is normal in size and FDG avidity. Musculoskeletal: Osteolytic lesion odontoid is again depicted On the current study significant hypermetabolic lesions are not identified IMPRESSION: Significant hypermetabolic osseous lesions are not identified on this study Follow-up high resolution CT chest abdomen pelvis would be useful in assessing the multiple osteolytic lesions described on the CT abdomen August 30, [address] cervical spine January 10, 2025
[2025-02-20 23:33] LABS: Albumin, 24-Hour Urine 100 %; Alpha 1 Globulin, 24Hr Urine 0 %; Alpha 2 Globulin, 24Hr Urine 0 %; Beta Globulins, 24Hr Urine 0 %; Gamma Globulins, 24Hr Urine 0 %; Protein/Creatinine Ratio 204 mg/g creat (<100); Total Volume 1700 mL
[2025-02-21 07:47] LABS: Creatinine, 24-Hour Urine 0.83 g/24 h (0.50-2.15); Protein, Total, 24 Hr Ur 170 (<150); Protein/Creatinine Ratio 0.204 (<0.100)
== END | disposition home or self-care (01) ==
LOC: CDIM 08:41 → SLDO 09:02
PROVIDERS: PCP Family Medicine; Referring Provider Internal Medicine Hematology & Oncology; Visit Provider Radiology Diagnostic Radiology
DX: C79.51 Secondary malignant neoplasm of bone (principal)
CPT/HCPCS: 78815; 82570; 84156; 84166; A9595